=== PATIENT | female | born 1965 | race Caucasian/White ===

== ENCOUNTER 2020-02-09 09:33 | Emergency (ER) | payer OTHER, MEDICARE ==
[~2020-02-09] VITALS: Ht 157.5 cm; Wt 67.1 kg
[~2020-02-09 09:33] MED LIST: CALCIUM +D & M1 EACH PO; CALICUM 500+D1 EACH; CELEBREX; DEPO-PROVERA; DOXYCYCLINE 10100 M1; ENABLEX15 MG; GABAPENTIN; GABITRIL12 MG PO; IBUPROFEN 600600 M1 PO; LAMICTAL; LORTAB 7.5/5001 TA1 PO; LYRICA 50 MG50 MG PO; LYRICA 75 MG CA75 MG; NABUMETONE 750750 M1 PO; NAPROSYN500 MG; NORCO 10-325 T1 EACH PO; NORCO 5-325 TA1 EACH PO; NORCO 7.5-3251 EACH PO; OCUVITE SOFTGE1 EAC1 PO; PROTONIX 20 MG20 M1 PO; TEGRETOL100 MG/5 M PO; VITAMIN C120 GM; ZPAK PO
[2020-02-09] MEDS ORDERED: LIDOCAINE VISC100 ML SWISH&SPIT (10:17)
[2020-02-09] MEDS ORDERED: ACYCLOVIR 200200 MG PO (10:17)
[2020-02-09] MEDS ORDERED: ACYCLOVIR 800800 MG PO (10:28)
== END 2020-02-09 10:45 | disposition home or self-care (01) ==
LOC: ER 09:33
DX: B08.5 Enteroviral vesicular pharyngitis (principal); Z79.1 Long term (current) use of non-steroidal anti-inflammatories (NSAID); Z79.899 Other long term (current) drug therapy; Z88.5 Allergy status to narcotic agent; Z88.8 Allergy status to other drugs, medicaments and biological substances

== ENCOUNTER → 2021-01-01 | Emergency (ER) | payer OTHER, MEDICARE ==
[~2021-01-01] MED LIST changes: +ACYCLOVIR 200200 MG PO; +ACYCLOVIR 800800 MG PO; +CARBAMAZEPINE100 M2 PO; +GABAPENTIN 100100 MG PO; +LAMICTAL 25 MG25 MG PO; +LAMOTRIGINE150 MG PO; +LIDOCAINE VISC100 ML SWISH&SPIT; +LYRICA 75 MG CA75 MG PO; +METHYLPREDNISOL32 MG PO; +NEURONTIN100 MG PO; +TEGRETOL200 MG PO
== END ==
LOC: ER 15:29
DX: Z53.21 Procedure and treatment not carried out due to patient leaving prior to being seen by health care provider (principal); Z88.6 Allergy status to analgesic agent; Z88.3 Allergy status to other anti-infective agents; Z88.5 Allergy status to narcotic agent; Z88.8 Allergy status to other drugs, medicaments and biological substances; W19.XXXA Unspecified fall, initial encounter; Y93.89 Activity, other specified; Y92.89 Other specified places as the place of occurrence of the external cause; Y99.8 Other external cause status